=== PATIENT | male | born 1995 | race Caucasian/White ===

== ENCOUNTER → 2020-04-03 08:59 | Outpatient (CLI) | payer MEDICAID, SELFPAY ==
--- NOTE | 2020-04-03 09:05 | AAVD_ITS ---
Reason For Study: H/O BLOOD CLOTS, IVC FILTER Aorta Measurements Aorta Doppler Measurements Proximal aorta measures1.54 x 1.84cm. in cross- Peak systolic flow velocities within the proximal sectional axis. aorta measure 134.4 cm/sec. Proximal aorta measures1.82cm. in longitudinal Peak systolic flow velocities within the mid aorta axis. measure 110.7 cm/sec. Mid aorta measures1.69 x 1.84cm. in cross- Peak systolic flow velocities within the distal sectional axis. aorta measure 79.4 cm/sec. Mid aorta measures1.7cm. in longitudinal axis. Distal aorta measures1.48 x 1.5cm. in cross- sectional axis. Distal aorta measures1.4cm. in longitudinal axis. IVC is compressible, patent and phasic flow is noted in all segments. Procedure Aorta IVC Iliac vasculature or bypass grafts 44283. Exam performed in department. Interpretation Summary Aorta and IVC appear widely patent. Ordering Physician: Cong See Referring Physician: Maryan Ferrer Performed By: Guerline Ahn, RDRANDY, RVT
== END ==
PROVIDERS: PCP Nurse Practitioner Family; Referring Provider Surgery Vascular Surgery; Visit Provider Surgery Vascular Surgery
DX: Z86.718 Personal history of other venous thrombosis and embolism (principal); Z95.828 Presence of other vascular implants and grafts
CPT/HCPCS: 93978

== ENCOUNTER → 2020-04-17 14:36 | Outpatient (CLI) | payer MEDICAID, SELFPAY ==
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
== END ==
PROVIDERS: PCP Nurse Practitioner Family; Referring Provider Surgery Vascular Surgery; Visit Provider Surgery Vascular Surgery
DX: T82.898A Other specified complication of vascular prosthetic devices, implants and grafts, initial encounter (principal); Z95.828 Presence of other vascular implants and grafts
CPT/HCPCS: 74177; Q9967

== ENCOUNTER 2020-05-16 06:49 | Day surgery (SDC) | payer MEDICAID, SELFPAY ==
[2020-05-15 08:07] VITALS: BMI 30.5
[2020-05-16 07:06] LABS: Hematocrit 46.9 % (40-54); Mean Corpuscular Hgb 29.8 pg (27.0-32.0); Mean Corpuscular Volume 93.1 fL (80-94); Mean Platelet Vol. 9.4 fl (6.2-12.0); Platelet Count 296 K/mm3 (150-450); RBC Distribution Width CV 12.9 % (11.6-14.6); RBC Distribution Width SD 43.6 fl (35.1-43.9); Red Blood Count 5.04 M/mm3 (4.6-6.2); White Blood Count 9.2 K/mm3 (4.4-11.0)
[2020-05-16 07:25] LABS: Albumin, Serum 3.9 g/dL (3.2-5.0); BUN 19 mg/dL (7-18); BUN/Creat Ratio 13.2 RATIO (10-20); Chloride 108 mmol/L (98-107); Creatinine, Serum 1.44 mg/dL (0.70-1.30); EST Glomerular Filtration Rate 64 mL/min (>60); Est Glom Filt Rate - Afr Amer 77 mL/min (>60); Estimated Creatinine Clearance 86.82 ml/min; Glucose 96 mg/dL (74-106); Phosphorus 3.3 mg/dL (2.5-4.9); Potassium 4.6 mmol/L (3.5-5.1); Sodium Level 141 mmol/L (136-145)
--- NOTE | 2020-05-16 08:07 | OP.PCM_ITS ---
Problem List (1) History of embolic filter insertion Status: Acute (2) Presence of IVC filter Status: Acute Report of Operation Date of Procedure: 05/16/20 Pre-Operative Diagnosis: History of IVC filter Post-Operative Diagnosis: Same Surgery/Procedure Performed:: 1. Ultrasound-guided access antegrade right jugular. 2. Inferior venacavogram. 3. Snare removal of IVC filter Type of Anesthesia:: Sedation,Conscious Description of Procedure: Patient brought to the Estimating Engineer. Underwent the appropriate timeout consent. Underwent sedation. Prepped and draped in a sterile fashion. We did ultrasound-guided access antegrade right jugular vein. Put a Glidewire down and then brought the sheath over the wire. We did a inferior venacavogram confirming patent IVC filter with good flow through here. We then brought the snare in and was able to snare the hook and then able to capture with the sheath and remove the filter. We did a completion cavogram that showed good flow throughout this area. Filter was then removed. We then removed out the sheath held pressure with good hemostasis. He is then brought to recovery stable condition. Sedation: This 24-year-old gentleman underwent moderate sedation given by Dr. Cong See. He was monitored EKG blood pressure and pulse ox for over the 30 minutes of the procedure and postoperatively. See the EMR for the complete record
== END 2020-05-16 10:00 | disposition home or self-care (01) ==
PROVIDERS: PCP Nurse Practitioner Family; Referring Provider Surgery Vascular Surgery; Visit Provider Surgery Vascular Surgery
DX: Z95.828 Presence of other vascular implants and grafts (principal); Z86.718 Personal history of other venous thrombosis and embolism; F32.9 Major depressive disorder, single episode, unspecified; Z81.8 Family history of other mental and behavioral disorders; F17.210 Nicotine dependence, cigarettes, uncomplicated
CPT/HCPCS: 36415; 37191; 76937; 80069; 85027; 99152; C1773; J7040; Q9967; C1769